=== PATIENT | female | born 1990 | race Caucasian/White ===

== ENCOUNTER 2022-09-28 08:26 | Emergency (ER) | payer MEDICAID ==
[~2022-09-28] VITALS: Ht 167.6 cm; Wt 127.0 kg
--- NOTE | 2022-09-28 08:30 | NUR ---
Pt ambulatory to room 5B, c/o abd cramps and n/v/d since 0 this morning. Pt states she went to [place] on Wednesday.
[2022-09-28] MEDS ORDERED: ONDANSETRON 4 MG/2 ML VIAL ONE ×2 (09:42→11:07)
[2022-09-28] MEDS ORDERED: IV NORMAL SALINE 1000 ML BAG IV ONE (09:45)
[2022-09-28] MEDS ORDERED: ONDANSETRON 4 MG/2 ML VIAL IV ONE ×2 (09:45→11:00)
[2022-09-28 09:57] LABS: HEMATOCRIT 41.3 % (31.2-41.9); MEAN CORPUSCULAR HEMOGLOBIN 29.9 uug (24.7-32.8); MEAN CORPUSCULAR VOLUME 86.4 fL (75.5-95.3); PLATELET COUNT (AUTO) 177 K/uL (179-408)
[2022-09-28 10:05] LABS: *BILIRUBIN,URIN NEGATIVE (NEGATIVE); *CLARITY,URINE CLEAR (CLEAR); *COLOR,URINE YELLOW (YELLOW); *KETONES,URINE NEGATIVE (NEGATIVE); *UROBILINOGEN,URINE 0.2 E.U./dl (NORMAL); LEUKOCYTE ESTERASE ,URINE NEGATIVE (NEGATIVE); NITRITE, URINE NEGATIVE (NEGATIVE); UGLUCOSE NEGATIVE (NEGATIVE)
[2022-09-28 10:07] LABS: *BLOOD, URINE TRACE (NEGATIVE); *URINE HCG, QUAL NEG (NEGATIVE)
[2022-09-28 10:09] LABS: CREATININE 0.7 mg/dL (0.6-1.3); POTASSIUM 4.4 mmol/L (3.5-5.1)
[2022-09-28 10:13] LABS: BILIRUBIN,DIRECT 0.1 mg/dL (0.0-0.2); BILIRUBIN,TOTAL 0.5 mg/dL (0.2-1.0); TOTAL PROTEIN, SERUM 7.4 g/dL (6.4-8.2)
[2022-09-28] MEDS ORDERED: KETOROLAC TROMETHAMINE 30 MG INJ ONE (10:35)
[2022-09-28] MEDS ORDERED: KETOROLAC TROMETHAMINE 30 MG INJ IVP ONE (10:45)
--- NOTE | 2022-09-28 10:45 | NUR ---
Patient complained of generalized body achea, back, and abdominal pain that is 7/10. Notified Dr. Huerta about patient's pain level.
[2022-09-28] MEDS ORDERED: MORPHINE SULFATE 2 MG/1 ML DISP.SYRIN IV ONE (11:00)
[2022-09-28] MEDS ORDERED: MORPHINE SULFATE 2 MG/1 ML DISP.SYRIN ONE (11:08)
[2022-09-28 11:59] LABS: BACTERIA,URINE NONE SEEN /HPF (NONE SEEN); RBC,URINE 0-3 /HPF (0-3); SQUAMOUS EPITHELIAL CELL,UR FEW /HPF (NONE SEEN); URINE AMORPHOUS URATE MANY /HPF; WBC,URINE 0-3 /HPF (0-3)
[2022-09-28] MEDS ORDERED: ONDA4TAB5 PO (12:22)
--- NOTE | 2022-09-28 12:37 | NUR ---
Patient discharged to home in stable condition. Written and verbal after care instructions given. Patient verbalizes understanding of instructions. Stressed follow up or return to ER for worsening s/s.
[2022-09-28 12:38] VITALS: BP 139/88
== END 2022-09-28 12:40 | disposition home or self-care (01) ==
LOC: ER 08:26
DX: R11.2 Nausea with vomiting, unspecified (principal); R10.9 Unspecified abdominal pain; R19.7 Diarrhea, unspecified; E66.01 Morbid (severe) obesity due to excess calories; Z68.42 Body mass index [BMI] 45.0-49.9, adult; Z20.822 Contact with and (suspected) exposure to COVID-19
CPT/HCPCS: 99284; 96361; 96375 ×2; 87426; 87804 ×2; 80076; 80048; 81001; 84703; 83690; 85025; 36415; 96374 ×2; J1885; J2405 ×2; J2270; J7040; A4663